=== PATIENT | male | born 1970 | race African-American/Black ===

== ENCOUNTER → 2018-01-11 | Outpatient (CLI) | payer OTHER | END | disposition home or self-care (01) | LOC: CFH 15:18 | PROVIDERS: ATTEND Family Medicine | DX: R31.9 Hematuria, unspecified (principal) | CPT/HCPCS: 76770 ==

== ENCOUNTER 2020-02-21 19:32 | Emergency (ER) | payer OTHER ==
[~2020-02-21] VITALS: Ht 172.7 cm; Wt 102.5 kg
--- NOTE | 2020-02-21 19:50 | NUR ---
ROOMED, PLACED VITALS SIGNS MONITORS, SAFETY PRECAUTION IN PLACE.
--- NOTE | 2020-02-21 20:29 | NUR ---
TRIM STENCIL MAKER AT BEDSIDE.
--- NOTE | 2020-02-21 20:39 | NUR ---
CONTINUITY DIRECTOR AT BEDSIDE FOR LAB DRAW.
[2020-02-21] MEDS ORDERED: PRAV10TA2 PO (21:07)
--- NOTE | 2020-02-21 21:08 | NUR ---
CALL TO LAB FOR REDRAW, PER PT SECURITY AND COMPLIANCE PROJECT MANAGER WAS NOT ABLE TO DRAW THE FIRST TIME.
--- NOTE | 2020-02-21 21:21 | NUR ---
IT PROJECT LEAD AT BEDSIDE FOR LAB DRAW.
[2020-02-21] MEDS ORDERED: SODIUM CHLORIDE 0.9% 1,000ML IVBOLUS ONE (21:30)
[2020-02-21 21:41] LABS: BASOPHILS # (AUTO) 0.04 x10^3/uL (0-0.1); BASOPHILS % (AUTO) 1 % (0-1); EOSINOPHILS # (AUTO) 0.16 x10^3/uL (0-0.4); EOSINOPHILS % (AUTO) 2 % (1-7); LYMPHOCYTES # (AUTO) 2.29 x10^3/uL (1-3.4); LYMPHOCYTES % (AUTO) 31 % (22-44); MD NO; MEAN CORPUSCULAR HEMOGLOBIN 28.3 pg (27.5-34.5); MEAN CORPUSCULAR HGB CONC 33.5 g/dL (33.2-36.2); MEAN CORPUSCULAR VOLUME 84.7 fL (81-97); MEAN PLATELET VOLUME 10.4 fL (7.4-10.4); MONOCYTES # (AUTO) 0.32 x10^3/uL (0.2-0.8); MONOCYTES % (AUTO) 4 % (2-9); NEUTROPHILS # (AUTO) 4.49 x10^3/uL (1.8-6.8); NEUTROPHILS % (AUTO) 62 % (42-75); PLATELET COUNT 162 x10^3/uL (130-400); RED BLOOD COUNT 5.14 x10^6/uL (4.38-5.82); RED CELL DISTRIBUTION WIDTH 13.9 % (9.4-14.8)
[2020-02-21 21:44] LABS: ALBUMIN 3.6 g/dL (3.4-5.0); ANION GAP 7 mmol/L (5-15); CALCIUM 8.6 mg/dL (8.5-10.1); CHLORIDE 110 mmol/L (98-107)
[2020-02-21 21:49] LABS: ALANINE AMINOTRANSFERASE 24 U/L (12-78); ALKALINE PHOSPHATASE 61 U/L (45-117); BILIRUBIN,TOTAL 0.7 mg/dL (0.2-1.0); CREATININE 1.07 mg/dL (0.7-1.3); TOTAL PROTEIN 7.5 g/dL (6.4-8.2); TROPONIN I 0.026 ng/mL (0.000-0.045)
--- NOTE | 2020-02-21 22:02 | NUR ---
PARAFFINER AT BEDSIDE.
[2020-02-21 22:13] LABS: PH, VENOUS 7.319 pH (7.320-7.420)
--- NOTE | 2020-02-21 22:13 | NUR ---
ERP AT BEDSIDE.
[2020-02-21 22:51] VITALS: BP 123/79
[2020-02-21 22:51] LABS: ACETONE, SERUM Trace (Negative)
== END 2020-02-21 23:08 | disposition home or self-care (01) ==
LOC: ED 20:00
DX: R07.2 Precordial pain (principal); R07.89 Other chest pain; R06.02 Shortness of breath; E78.5 Hyperlipidemia, unspecified; R10.9 Unspecified abdominal pain; R94.31 Abnormal electrocardiogram [ECG] [EKG]
CPT/HCPCS: 36415; 71045; 80053; 82010; 82803; 83690; 84484; 85025; 93005; 99285; J7030

== ENCOUNTER 2020-03-06 21:44 | Emergency (ER) | payer MEDICAID, OTHER ==
[~2020-03-06] VITALS: Ht 172.7 cm; Wt 110.5 kg
[~2020-03-06 21:44] MED LIST: PRAV10TA2 PO
[2020-03-06] MEDS ORDERED: DEXAMETHASONE 4 MG/ML, 5ML ONE (22:28)
[2020-03-06] MEDS ORDERED: DEXAMETHASONE 4 MG TABLET PO ONE (22:30)
--- NOTE | 2020-03-06 22:39 | NUR ---
PT MEDICATED PER MAR. POC DISCUSSED. PT DENIES FURTHER NEEDS AT THIS TIME. CALL LIGHT ON LAP.
--- NOTE | 2020-03-06 23:10 | NUR ---
EKG DONE AND GIVEN TO MD AT BEDSIDE. POC DISCUSSED BY MD. ALL QUESTIONS ANSWERED. AWAITING DC PAPERWORK.
[2020-03-06 23:17] VITALS: BP 115/74
== END 2020-03-06 23:24 | disposition home or self-care (01) ==
LOC: ED 23:23
DX: J02.9 Acute pharyngitis, unspecified (principal); E78.5 Hyperlipidemia, unspecified
CPT/HCPCS: 87081; 87880; 93005; 99284

== ENCOUNTER 2020-03-13 12:57 | Emergency (ER) | payer OTHER ==
[~2020-03-13] VITALS: Ht 172.7 cm; Wt 97.1 kg
[2020-03-13] MEDS ORDERED: SODIUM CHLORIDE FLUSH 10ML SYR IVF ONE (14:30)
[2020-03-13 14:35] LABS: BASOPHILS # (AUTO) 0.01 x10^3/uL (0-0.1); BASOPHILS % (AUTO) 0 % (0-1); EOSINOPHILS % (AUTO) 0 % (1-7); LYMPHOCYTES % (AUTO) 10 % (22-44); MD NO; MEAN CORPUSCULAR HEMOGLOBIN 28.5 pg (27.5-34.5); MEAN CORPUSCULAR HGB CONC 33.3 g/dL (33.2-36.2); MEAN CORPUSCULAR VOLUME 85.4 fL (81-97); MEAN PLATELET VOLUME 10.5 fL (7.4-10.4); MONOCYTES # (AUTO) 0.08 x10^3/uL (0.2-0.8); MONOCYTES % (AUTO) 1 % (2-9); NEUTROPHILS # (AUTO) 6.43 x10^3/uL (1.8-6.8); NEUTROPHILS % (AUTO) 89 % (42-75); PLATELET COUNT 165 x10^3/uL (130-400); RED CELL DISTRIBUTION WIDTH 13.7 % (9.4-14.8)
[2020-03-13 14:45] LABS: ALBUMIN 4.1 g/dL (3.4-5.0); ANION GAP 10 mmol/L (5-15); CALCIUM 8.7 mg/dL (8.5-10.1); CHLORIDE 109 mmol/L (98-107); CREATININE 1.19 mg/dL (0.7-1.3)
--- NOTE | 2020-03-13 15:05 | NUR ---
PT UPRIGHT ON GURNEY AWAKE & TEXTING, RESPONDS APPROP TO STAFF, NO RESP DISTRESS, COMFORT MEASURES PROVIDED, CALL LIGHT WITHIN REACH.
[2020-03-13] MEDS ORDERED: OMNIPAQUE 350 MG/ML, 100ML BOTTLE ONE (15:08)
[2020-03-13 15:57] VITALS: BP 127/85
--- NOTE | 2020-03-13 15:57 | NUR ---
PT REMAINS UPRIGHT ON GURNEY AWAKE & COMFORTABLE, RESPONDS APPROP TO STAFF, NO RESP DISTRESS, COMFORT MEASURES PROVIDED, CALL LIGHT WITHIN REACH.
--- NOTE | 2020-03-13 16:27 | NUR ---
Patient given discharge instructions and they have confirmed that they understand the instructions. Patient ambulatory with steady gait.
== END 2020-03-13 16:38 | disposition home or self-care (01) ==
LOC: ED 14:35
DX: E04.1 Nontoxic single thyroid nodule (principal); R13.12 Dysphagia, oropharyngeal phase; E78.5 Hyperlipidemia, unspecified
CPT/HCPCS: 36415; 70491; 71045; 80048; 82040; 85025; 86308; 99285; Q9967

== ENCOUNTER 2020-03-17 02:34 | Emergency (ER) | payer OTHER ==
[~2020-03-17] VITALS: Ht 172.7 cm; Wt 96.0 kg
[2020-03-17 02:39] VITALS: BP 120/84
== END 2020-03-17 04:44 | disposition home or self-care (01) ==
LOC: ED 03:19
DX: L04.0 Acute lymphadenitis of face, head and neck (principal); R13.12 Dysphagia, oropharyngeal phase; R68.2 Dry mouth, unspecified; E78.5 Hyperlipidemia, unspecified
CPT/HCPCS: 99283

== ENCOUNTER 2020-04-14 12:39 | Emergency (ER) | payer OTHER ==
[~2020-04-14] VITALS: Ht 172.7 cm; Wt 91.1 kg
[~2020-04-14 12:39] MED LIST changes: +ESOM40CA PO
--- NOTE | 2020-04-14 13:36 | NUR ---
PT BROUGHT BACK FROM TRIAGE WITH CHIEF COMPLAINT OF INCREASED FREQUENT URINATION AND BACK PAIN FOR A FEW DAYS.
[2020-04-14 13:42] LABS: BASOPHILS # (AUTO) 0.03 x10^3/uL (0-0.1); BASOPHILS % (AUTO) 0 % (0-1); EOSINOPHILS # (AUTO) 0.14 x10^3/uL (0-0.4); EOSINOPHILS % (AUTO) 2 % (1-7); LYMPHOCYTES # (AUTO) 1.81 x10^3/uL (1-3.4); LYMPHOCYTES % (AUTO) 22 % (22-44); MD NO; MEAN CORPUSCULAR HEMOGLOBIN 28.4 pg (27.5-34.5); MEAN CORPUSCULAR VOLUME 86.1 fL (81-97); MEAN PLATELET VOLUME 10.8 fL (7.4-10.4); MONOCYTES # (AUTO) 0.49 x10^3/uL (0.2-0.8); MONOCYTES % (AUTO) 6 % (2-9); NEUTROPHILS # (AUTO) 5.78 x10^3/uL (1.8-6.8); NEUTROPHILS % (AUTO) 70 % (42-75); PLATELET COUNT 173 x10^3/uL (130-400); RED BLOOD COUNT 4.99 x10^6/uL (4.38-5.82); RED CELL DISTRIBUTION WIDTH 14.3 % (9.4-14.8)
[2020-04-14 13:46] LABS: MICROSCOPIC NOT IND
[2020-04-14 13:54] LABS: ALBUMIN 3.6 g/dL (3.4-5.0); ANION GAP 6 mmol/L (5-15); CALCIUM 9.1 mg/dL (8.5-10.1); CHLORIDE 105 mmol/L (98-107); CREATININE 1.14 mg/dL (0.7-1.3)
[2020-04-14 14:39] VITALS: BP 134/65
== END 2020-04-14 14:40 | disposition home or self-care (01) ==
LOC: ED 14:07
DX: R35.0 Frequency of micturition (principal); R10.9 Unspecified abdominal pain; E78.5 Hyperlipidemia, unspecified
CPT/HCPCS: 36415; 80048; 81003; 82040; 85025; 99283

== ENCOUNTER 2020-05-08 11:23 | Emergency (ER) | payer OTHER ==
[~2020-05-08] VITALS: Ht 172.7 cm; Wt 89.4 kg
[2020-05-08] MEDS ORDERED: MAALOX/HYOSCYAMINE/LIDOCAINE 45 ML BTL ONE (11:51)
[2020-05-08 11:53] VITALS: BP 113/81
[2020-05-08] MEDS ORDERED: MAALOX/HYOSCYAMINE/LIDOCAINE 45 ML BTL PO ONE (12:00)
--- NOTE | 2020-05-08 12:03 | NUR ---
Patient here today with c/o of nose bleeds x1 week, sinus pressure behind eyes and acid reflux with some n/v. Patient A&Ox4, no c/o pain at this time. GI cocktail given. No further needs at this time.
[2020-05-08] MEDS ORDERED: SUCR1TAB PO (12:20)
[2020-05-08] MEDS ORDERED: PANT40TA5 PO (12:20)
--- NOTE | 2020-05-08 12:28 | NUR ---
Patient given discharge instructions and they have confirmed that they understand the instructions. Patient ambulatory with steady gait. All patient belongings gathered by patient.
== END 2020-05-08 12:30 | disposition home or self-care (01) ==
LOC: ED 12:15
DX: G89.29 Other chronic pain (principal); K20.9 Esophagitis, unspecified; R06.02 Shortness of breath; R11.2 Nausea with vomiting, unspecified; R07.89 Other chest pain; R04.0 Epistaxis; K21.9 Gastro-esophageal reflux disease without esophagitis
CPT/HCPCS: 71045; 93005; 99283

== ENCOUNTER 2020-05-22 16:45 | Emergency (ER) | payer OTHER ==
[~2020-05-22] VITALS: Ht 172.7 cm; Wt 88.7 kg
[~2020-05-22 16:45] MED LIST changes: +PANT40TA5 PO; +SUCR1TAB PO
[2020-05-22] MEDS ORDERED: MAALOX/HYOSCYAMINE/LIDOCAINE 45 ML BTL PO ONE (17:30)
--- NOTE | 2020-05-22 17:43 | NUR ---
INDUSTRIAL PIPEFITTER JOURNEYMAN: PT TO ROOM FROM LOBBY
--- NOTE | 2020-05-22 18:02 | NUR ---
Pt refused GI cocktail ordered in DEC. ED provider notified. No further orders.
[2020-05-22 18:07] LABS: BASOPHILS # (AUTO) 0.03 x10^3/uL (0-0.1); BASOPHILS % (AUTO) 0 % (0-1); EOSINOPHILS # (AUTO) 0.12 x10^3/uL (0-0.4); EOSINOPHILS % (AUTO) 2 % (1-7); LYMPHOCYTES % (AUTO) 22 % (22-44); MD NO; MEAN CORPUSCULAR HEMOGLOBIN 28.1 pg (27.5-34.5); MEAN CORPUSCULAR HGB CONC 32.6 g/dL (33.2-36.2); MEAN CORPUSCULAR VOLUME 86.2 fL (81-97); MEAN PLATELET VOLUME 10.7 fL (7.4-10.4); MONOCYTES # (AUTO) 0.34 x10^3/uL (0.2-0.8); MONOCYTES % (AUTO) 4 % (2-9); NEUTROPHILS # (AUTO) 5.92 x10^3/uL (1.8-6.8); NEUTROPHILS % (AUTO) 72 % (42-75); PLATELET COUNT 173 x10^3/uL (130-400); RED BLOOD COUNT 4.72 x10^6/uL (4.38-5.82); RED CELL DISTRIBUTION WIDTH 14.4 % (9.4-14.8)
[2020-05-22 18:15] LABS: ALBUMIN 3.5 g/dL (3.4-5.0); ANION GAP 7 mmol/L (5-15); CALCIUM 8.4 mg/dL (8.5-10.1); CHLORIDE 110 mmol/L (98-107)
[2020-05-22 18:22] LABS: ALANINE AMINOTRANSFERASE 41 U/L (12-78); ALKALINE PHOSPHATASE 77 U/L (45-117); BILIRUBIN,TOTAL 0.4 mg/dL (0.2-1.0); CREATININE 1.04 mg/dL (0.7-1.3); TOTAL PROTEIN 7.7 g/dL (6.4-8.2); TROPONIN I < 0.015 ng/mL (0.000-0.045)
[2020-05-22] MEDS ORDERED: MAALOX/HYOSCYAMINE/LIDOCAINE 45 ML BTL ONE (18:59)
--- NOTE | 2020-05-22 19:15 | NUR ---
ERP IN TO RECHECK PT. AT THIS TIME. RECEIVED BS REPORT FROM OPAL AMEZQUITA TO ASSUME CARE OF PT.
--- NOTE | 2020-05-22 19:15 | NUR ---
Report recieved. Patient ambulated steady to bathroom, no s/s of distress, refused medication at this time
--- NOTE | 2020-05-22 20:16 | NUR ---
ATTEMPTED IV ACCESS X 3 FOR CTA; ATTEMPTS UNSUCCESSFUL. TRAUMA RN ATTEMPTING IV ACCESS AT THIS TIME.
--- NOTE | 2020-05-22 21:02 | NUR ---
RETURN PT FROM CT FOR BETTER IV ACCESS.
[2020-05-22] MEDS ORDERED: OMNIPAQUE 350 MG/ML, 75ML BOTTLE ONE (21:49)
--- NOTE | 2020-05-22 22:10 | NUR ---
PT. CHART UP FOR RECHECK BY [facility] AT THIS TIME. PT. WITH NO DISTRESS. REQUESTING WATER; WILL REQUEST FROM
--- NOTE | 2020-05-22 23:06 | NUR ---
IV REMOVED SITE BECAME TENDER TO PT. WARM PACK PLACED FOR COMFORT WITH + RESULTS. DR. VAZ CURRENTLY AT BS TO DISCUSS POC WITH PT.
[2020-05-22 23:28] VITALS: BP 144/88
== END 2020-05-22 23:28 | disposition home or self-care (01) ==
LOC: ED 21:23
DX: R55 Syncope and collapse (principal); K21.0 Gastro-esophageal reflux disease with esophagitis; E87.6 Hypokalemia; R06.02 Shortness of breath; R42 Dizziness and giddiness; R94.31 Abnormal electrocardiogram [ECG] [EKG]; E78.5 Hyperlipidemia, unspecified
CPT/HCPCS: 36415; 71045; 71275; 80053; 84484; 85025; 93005; 99285; Q9967